=== PATIENT | male | born 1970 | race African-American/Black ===

== ENCOUNTER 2022-06-17 09:31 | Emergency (ER) | payer MEDICARE ==
[~2022-06-17] VITALS: Ht 182.9 cm; Wt 113.6 kg
[2022-06-17 12:00] VITALS: BP 151/116
[2022-06-17] MEDS ORDERED: FLUORESCEIN SODIUM 1 MG STRIP OS ONE (12:00)
[2022-06-17] MEDS ORDERED: PROPARACAINE HCL 0.5% 15 ML OPHTHALMIC SOLUTION OS ONE (12:00)
== END 2022-06-17 12:59 | disposition home or self-care (01) ==
LOC: EMS 09:37
DX: H53.40 Unspecified visual field defects (principal); F10.20 Alcohol dependence, uncomplicated; F17.210 Nicotine dependence, cigarettes, uncomplicated
CPT/HCPCS: 99283